=== PATIENT | female | born 1950 | race African-American/Black ===

== ENCOUNTER 2016-09-11 12:50 | Emergency (ER) | payer OTHER ==
[~2016-09-11] VITALS: Ht 157.5 cm; Wt 89.4 kg
--- NOTE | ~2016-09-11 | EKG ---
[place] [address] [facility] [place] [address] ELECTROCARDIOGRAM REPORT Name: RADAMES HODGES Room #: [facility]#: [id number] Admission: 09/11/16 Attend Phys: Discharge: 09/11/16 Date of : 52 Report #: [id number] THIS REPORT FOR: //name// [facility] ED Test Date: 2016-09-11 Test Time: 12:51:58 Pat Name: RADAMES HODGES Department: Room: Gender: F Paediatric Surgeon: MZOOK : 1950 Requested By: Janusz Car Order Number: [id number] MD: Casa Daniel Measurements Intervals [place] Rate: 72 P: 61 HI: 167 QRS: -46 QRSD: 100 T: 57 QT: 433 QTc: 474 Interpretive Statements Sinus rhythm Left anterior fascicular block Poor R wave progression Compared to ECG 03/20/2016 08:52:29 No significant change was found Electronically Signed On 09-12-2016 9:09:01 CDT by Casa Daniel [email or web address] <ELECTRONICALLY SIGNED> By: Casa Daniel MD, [facility] 09/12/16 0909 125 50 Casa Daniel MD, [facility] /EPI
[~2016-09-11 12:50] MED LIST: CEFTIN500 MG PO; COMBIVENT RESPIM4 GM IH; LISINOPRIL10 MG PO; NICOTINE TRANSD14 M1 TRANSDERM; NORVASC10 MG PO; PREDNISONE 20 M20 MG PO
[2016-09-11 13:15] LABS: ABSOLUTE NEUTROPHILS 5.7 thou/uL (1.4-8.2); EOSINOPHILS 0.7 % (0.0-3.0); HEMATOCRIT 40.9 % (37.0-47.0); HEMOGLOBIN 13.4 gm/dL (12.0-15.0); MCH 26.2 pg (26.0-34.0); MCHC 32.8 g/dL (28.0-37.0); MONOCYTES 7.6 % (1.0-8.0); PLATELET COUNT 225 thou/uL (150-400); POLYS 58.7 % (36.0-66.0); RBC 5.12 mil/uL (4.20-5.00); RDW 17.4 % (10.5-14.5); WBC 9.8 thou/uL (4.0-11.0)
[2016-09-11 13:16] LABS: MANUAL DIFF NO
[2016-09-11 13:53] LABS: ANION GAP 7 mmol/L (7-16); BUN 10 mg/dL (7-18); CALCIUM 8.8 mg/dL (8.5-10.1); CHLORIDE 104 mmol/L (98-107); CO2 26 mmol/L (21-32); CREATININE 0.6 mg/dL (0.6-1.3); GLUCOSE 86 mg/dL (70-99); POTASSIUM 3.6 mmol/L (3.5-5.1); SODIUM 137 mmol/L (136-145)
[2016-09-11 13:58] LABS: ALBUMIN 3.4 g/dL (3.4-5.0); ALKALINE PHOSPHATASE 68 U/L (46-116); MAGNESIUM 1.9 mg/dL (1.8-2.4); SGOT 15 U/L (15-37); SGPT 20 U/L (30-65); TOTAL BILIRUBIN 0.3 mg/dL (<0.1-1.0); TOTAL PROTEIN 7.9 g/dL (6.4-8.2); TROPONIN-I < 0.04 ng/mL (<0.04-0.07)
== END 2016-09-11 14:32 ==
LOC: ER 12:50
PROVIDERS: Emergency Medicine
DX: R07.9 Chest pain, unspecified (principal); I10 Essential (primary) hypertension; J44.9 Chronic obstructive pulmonary disease, unspecified; F17.210 Nicotine dependence, cigarettes, uncomplicated

== ENCOUNTER 2018-04-17 19:03 | Emergency (ER) | payer OTHER ==
[~2018-04-17] VITALS: Ht 157.5 cm; Wt 89.8 kg
[~2018-04-17 19:03] MED LIST changes: +ATIVAN0.5 MG PO; +MOBIC15 MG PO; +VALIUM5 MG PO
[2018-04-17] MEDS ORDERED: IBUPROFEN 200200 M1 PO (20:59)
[2018-04-17] MEDS ORDERED: AIRBORNE EFFER1 EACH PO (21:00)
[2018-04-17 21:11] LABS: ABSOLUTE NEUTROPHILS 6.7 thou/uL (1.4-8.2); BASOPHILS 2.5 % (0.0-2.0); EOSINOPHILS 1.2 % (0.0-3.0); HEMATOCRIT 40.3 % (37.0-47.0); HEMOGLOBIN 13.1 gm/dL (12.0-15.0); LYMPHOCYTES 29.7 % (24.0-44.0); MCH 26.5 pg (26.0-34.0); MCHC 32.5 g/dL (28.0-37.0); MCV 81.3 fL (80.0-100.0); MONOCYTES 6.7 % (1.0-8.0); PLATELET COUNT 231 thou/uL (150-400); POLYS 59.9 % (36.0-66.0); RBC 4.95 mil/uL (4.20-5.00); RDW 17.9 % (10.5-14.5); WBC 11.2 thou/uL (4.0-11.0)
[2018-04-17 21:42] LABS: ALBUMIN 3.2 g/dL (3.4-5.0); ANION GAP 10 mmol/L (7-16); BUN 12 mg/dL (7-18); CALCIUM 9.1 mg/dL (8.5-10.1); CHLORIDE 104 mmol/L (98-107); CO2 26 mmol/L (21-32); CREATININE 0.6 mg/dL (0.6-1.0); DIRECT BILIRUBIN < 0.1 mg/dL (<0.1-0.3); GLUCOSE 86 mg/dL (74-106); LIPASE 142 U/L (73-393); POTASSIUM 3.5 mmol/L (3.5-5.1); SGOT 16 U/L (15-37); SGPT 18 U/L (30-65); SODIUM 140 mmol/L (136-145); TOTAL BILIRUBIN 0.3 mg/dL (<0.1-1.0); TOTAL PROTEIN 7.8 g/dL (6.4-8.2)
[2018-04-17] MEDS ORDERED: ZOFRAN ODT4 MG PO (22:11)
== END 2018-04-17 22:26 | disposition home or self-care (01) ==
LOC: ER 19:03
PROVIDERS: Emergency Medicine
DX: R10.9 Unspecified abdominal pain (principal); R11.0 Nausea; F17.210 Nicotine dependence, cigarettes, uncomplicated; I10 Essential (primary) hypertension; J44.9 Chronic obstructive pulmonary disease, unspecified; Z98.890 Other specified postprocedural states

== ENCOUNTER → 2018-08-09 | Outpatient (CLI) | payer OTHER ==
[~2018-08-09] MED LIST changes: +AIRBORNE EFFER1 EACH PO; +IBUPROFEN 200200 M1 PO; +ZOFRAN ODT4 MG PO
== END ==
LOC: PUL 10:03
DX: R06.02 Shortness of breath (principal); J44.1 Chronic obstructive pulmonary disease with (acute) exacerbation

== ENCOUNTER 2019-07-01 10:42 | Emergency (ER) | payer OTHER ==
[~2019-07-01] VITALS: Ht 170.2 cm; Wt 90.7 kg
[2019-07-01] MEDS ORDERED: SIMVASTATIN40 MG PO (10:48)
[2019-07-01] MEDS ORDERED: TAMIFLU75 MG PO (11:37)
[2019-07-01] MEDS ORDERED: PROAIR HFA8.5 GM INH ×2 (11:37→11:39)
[2019-07-01] MEDS ORDERED: PREDNISONE 20 M20 M1 PO (11:37)
[2019-07-01] MEDS ORDERED: PROMETH-CODEIN 65 ML PO (12:16)
[2019-07-01 12:44] VITALS: BP 112/53
== END 2019-07-01 12:45 | disposition home or self-care (01) ==
LOC: ER 10:42
DX: J10.1 Influenza due to other identified influenza virus with other respiratory manifestations (principal); R05 Cough; I10 Essential (primary) hypertension; J44.9 Chronic obstructive pulmonary disease, unspecified; F17.210 Nicotine dependence, cigarettes, uncomplicated